=== PATIENT | female | born 1935 | race Caucasian/White ===

== ENCOUNTER 2021-12-29 22:45 | Inpatient (IN) | payer OTHER ==
[2021-12-29 23:12] LABS: HEMATOCRIT 33.6 % (32.4-45.2); HEMOGLOBIN 12.3 G/dL (10.7-15.3); MCH 33.6 pg (25.7-33.7); MCHC 36.5 g/dl (32.0-36.0); MEAN CELL VOLUME 92.1 fl (80-96); MEAN PLT VOLUME 6.9 fl (7.5-11.1); PLATELET COUNT 317.7 10^3/uL (134-434); RBC 3.65 10^6/uL (3.60-5.2); RDW 14.1 % (11.6-15.6); WHITE BLOOD COUNT 10.4 10^3/uL (4.0-10.8)
[2021-12-29 23:27] LABS: PLATELET ESTIMATE ADEQUATE
[2021-12-29 23:36] LABS: ALBUMIN 4.1 g/dl (3.4-5.0); CALCIUM 8.7 mg/dl (8.5-10); CREATININE 0.6 mg/dl (0.55-1.3); TOT PROT 6.9 g/dl (6.4-8.2)
[2021-12-29] MEDS ORDERED: ONDANSETRON 4 MG/2 ML VIAL IVPUSH ONE (23:47)
[2021-12-29] MEDS ORDERED: POTASSIUM CHLORIDE 20 MEQ PREMIX IVPB 100 ML IVPB ONE (23:48)
[2021-12-29] MEDS ORDERED: ONDANSETRON 4 MG/2 ML VIAL ONE (23:59)
[2021-12-29] MEDS ORDERED: KCL 10 MEQ IVPB 20 MEQ/200 ML INFUS.BAG IVPB ONE (23:59)
[2021-12-30] MEDS ORDERED: morphine CARPU-JECT 2 MG/1 ML DISP.SYRIN IVPUSH ONE (00:18)
[2021-12-30] MEDS ORDERED: morphine SULFATE 4 MG/ML VIAL ONE (00:24)
[2021-12-30 01:45] LABS: CHLORIDE 72 mmol/L (98-107)
[2021-12-30 01:47] LABS: BLOOD UREA NITROGEN 5.4 mg/dL (7-18); CO2 23 mmol/L (21-32); GLUCOSE,RANDOM 131 mg/dL (74-106)
[2021-12-30 01:48] LABS: CALCIUM 7.6 mg/dL (8.5-10.1)
[2021-12-30 01:50] LABS: CREATININE 0.5 mg/dL (0.55-1.3)
[2021-12-30 02:42] LABS: ANION GAP 15 MMOL/L (8-16); SODIUM 110 mmol/L (136-145)
[2021-12-30] MEDS ORDERED: POTASSIUM CHLORIDE 20 MEQ PREMIX IVPB 100 ML IVPB ONE (02:42)
[2021-12-30] MEDS ORDERED: POTASSIUM CHLORIDE TABS 20 MEQ TABLET.ER (FP) PO ONE ×4 (02:47→12:09)
[2021-12-30] MEDS ORDERED: KCL 10 MEQ IVPB 20 MEQ/200 ML INFUS.BAG IVPB ONE (02:49)
[2021-12-30] MEDS ORDERED: SODIUM CHLORIDE 1,000 ML IV STA (03:41)
[2021-12-30] MEDS ORDERED: POLYETHYLENE GLYCOL (HEALTHYLAX) 3350 17 GM PACKET PO PRN (03:47)
[2021-12-30] MEDS ORDERED: ONDANSETRON 4 MG/2 ML VIAL IVPUSH PRN (06:00)
[2021-12-30 08:10] LABS: HEMATOCRIT 31.3 % (32.4-45.2); HEMOGLOBIN 11.1 G/dL (10.7-15.3); MCHC 35.6 g/dl (32.0-36.0); MEAN CELL VOLUME 92.7 fl (80-96); MEAN PLT VOLUME 7.1 fl (7.5-11.1); PLATELET COUNT 321.2 10^3/uL (134-434); RBC 3.38 10^6/uL (3.60-5.2); RDW 14.3 % (11.6-15.6); WHITE BLOOD COUNT 10.9 10^3/uL (4.0-10.8)
[2021-12-30 08:15] LABS: CALCIUM 7.7 mg/dl (8.5-10); CREATININE 0.5 mg/dl (0.55-1.3); MAGNESIUM 1.2 mg/dL (1.8-2.4); PHOSPHOROUS 2.1 mg/dl (2.5-4.9)
[2021-12-30 09:35] LABS: INR 1.01 (0.83-1.09); PROTHROMBIN TIME (PATIENT) 11.6 SEC (9.7-13.0)
[2021-12-30 09:37] LABS: ACTIVATED PTT 24.9 SECONDS (25.2-36.5)
[2021-12-30] MEDS: ENOXAPARIN NA (PORCINE) 40 MG/0.4 ML DISP.SYRIN SQ SCH (10:46)
[2021-12-30] MEDS ORDERED: traMADol HCL 50 MG TABLET PO ONE (10:49)
[2021-12-30] MEDS ORDERED: traMADol HCL 50 MG TABLET ONE (11:18)
[2021-12-30] MEDS ORDERED: MAGNESIUM SULF 50% (8.12 MEQ/2 ML-1 GM VIAL) IVPB ONE (11:33)
[2021-12-30 11:53] LABS: EPITHELIAL CELLS RARE /hpf
[2021-12-30] MEDS ORDERED: MAGNESIUM SULFATE IN WATER 2 GM/50 ML IVPB IVPB ONE (12:09)
[2021-12-30] MEDS: SODIUM CHLORIDE 0.9%/KCL 20 MEQ/1,000 ML INFUS.BAG IV SCH (12:17)
[2021-12-30] MEDS: ACETAMINOPHEN 325 MG TABLET (FP) PO PRN (19:40)
[2021-12-30 21:13] LABS: CHLORIDE 73 mmol/L (98-107)
[2021-12-30 21:14] LABS: BLOOD UREA NITROGEN 4.3 mg/dL (7-18); CALCIUM 7.6 mg/dL (8.5-10.1)
[2021-12-30 21:15] LABS: CO2 18 mmol/L (21-32); GLUCOSE,RANDOM 159 mg/dL (74-106); MAGNESIUM 1.9 mg/dL (1.8-2.4)
[2021-12-30 21:18] LABS: CREATININE 0.5 mg/dL (0.55-1.3); PHOSPHOROUS 1.8 mg/dL (2.5-4.9)
[2021-12-30 21:21] LABS: ANION GAP 18 MMOL/L (8-16); SODIUM 109 mmol/L (136-145)
[2021-12-30] MEDS: NAPH,MB-DB/K PH,MBDB POWDER PACKET PO SCH (21:59)
[2021-12-31] MEDS: SODIUM CHLORIDE 0.9%/KCL 20 MEQ/1,000 ML INFUS.BAG IV SCH ×2 (00:15→11:03)
[2021-12-31 00:41] LABS: CHLORIDE 74 mmol/L (98-107)
[2021-12-31 00:42] LABS: CALCIUM 7.6 mg/dL (8.5-10.1)
[2021-12-31 00:43] LABS: BLOOD UREA NITROGEN 5.9 mg/dL (7-18); CO2 20 mmol/L (21-32); GLUCOSE,RANDOM 158 mg/dL (74-106)
[2021-12-31 00:46] LABS: CREATININE 0.7 mg/dL (0.55-1.3)
[2021-12-31 01:12] LABS: ANION GAP 18 MMOL/L (8-16); SODIUM 113 mmol/L (136-145)
[2021-12-31] MEDS: ACETAMINOPHEN 325 MG TABLET (FP) PO PRN (02:06)
[2021-12-31 08:33] LABS: HEMATOCRIT 28.6 % (32.4-45.2); HEMOGLOBIN 10.2 GM/dL (10.7-15.3); MCH 32.3 pg (25.7-33.7); MCHC 35.6 g/dl (32.0-36.0); MEAN CELL VOLUME 90.6 fl (80-96); MEAN PLT VOLUME 7.6 fl (7.5-11.1); PLATELET COUNT 377 10^3/uL (134-434); RBC 3.16 M/mm3 (3.60-5.2); RDW 13.2 % (11.6-15.6); WHITE BLOOD COUNT 10.4 K/mm3 (4.0-10.0)
[2021-12-31 08:39] LABS: INR 0.99 (0.83-1.09); PROTHROMBIN TIME (PATIENT) 11.4 SEC (9.7-13.0)
[2021-12-31 08:40] LABS: CHLORIDE 75 mmol/L (98-107)
[2021-12-31 08:47] LABS: CALCIUM 7.6 mg/dL (8.5-10.1)
[2021-12-31 08:48] LABS: BLOOD UREA NITROGEN 6.9 mg/dL (7-18); CO2 22 mmol/L (21-32); GLUCOSE,RANDOM 135 mg/dL (74-106); MAGNESIUM 2.1 mg/dL (1.8-2.4)
[2021-12-31 08:51] LABS: CREATININE 0.5 mg/dL (0.55-1.3)
[2021-12-31 08:52] LABS: ANION GAP 16 MMOL/L (8-16); SODIUM 113 mmol/L (136-145)
[2021-12-31] MEDS: ENOXAPARIN NA (PORCINE) 40 MG/0.4 ML DISP.SYRIN SQ SCH (09:08)
[2021-12-31] MEDS: NAPH,MB-DB/K PH,MBDB POWDER PACKET PO SCH ×2 (09:08→21:45)
[2021-12-31] MEDS ORDERED: POTASSIUM PHOSPHATE 15 MM in SODIUM CHLORIDE 100 ML IVPB ONE (14:37)
[2021-12-31 19:23] LABS: CALCIUM 7.9 mg/dL (8.5-10.1)
[2021-12-31 19:27] LABS: CREATININE 0.6 mg/dL (0.55-1.3)
[2022-01-01] MEDS: SODIUM CHLORIDE 0.9%/KCL 20 MEQ/1,000 ML INFUS.BAG IV SCH ×3 (02:05→21:19)
[2022-01-01] MEDS: ACETAMINOPHEN 325 MG TABLET (FP) PO PRN ×3 (03:34→17:33)
[2022-01-01 08:09] LABS: HEMATOCRIT 23.5 % (32.4-45.2); HEMOGLOBIN 8.2 GM/dL (10.7-15.3); MCH 31.9 pg (25.7-33.7); MCHC 34.9 g/dl (32.0-36.0); MEAN CELL VOLUME 91.3 fl (80-96); MEAN PLT VOLUME 7.4 fl (7.5-11.1); PLATELET COUNT 342 10^3/uL (134-434); RBC 2.57 M/mm3 (3.60-5.2); RDW 13.3 % (11.6-15.6); WHITE BLOOD COUNT 12.4 K/mm3 (4.0-10.0)
[2022-01-01 08:27] LABS: CHLORIDE 85 mmol/L (98-107)
[2022-01-01 08:34] LABS: CO2 22 mmol/L (21-32); GLUCOSE,RANDOM 100 mg/dL (74-106); MAGNESIUM 2.1 mg/dL (1.8-2.4)
[2022-01-01 08:35] LABS: CALCIUM 7.7 mg/dL (8.5-10.1)
[2022-01-01 08:36] LABS: BLOOD UREA NITROGEN 8.7 mg/dL (7-18)
[2022-01-01 08:37] LABS: CREATININE 0.4 mg/dL (0.55-1.3)
[2022-01-01 08:46] LABS: ANION GAP 11 MMOL/L (8-16); SODIUM 118 mmol/L (136-145)
[2022-01-01] MEDS: ENOXAPARIN NA (PORCINE) 40 MG/0.4 ML DISP.SYRIN SQ SCH (09:08)
[2022-01-01] MEDS ORDERED: SODIUM PHOSPHATE - 20 MM in SODIUM CHLORIDE 250 ML IVPB ONE (10:00)
[2022-01-01] MEDS: POLYETHYLENE GLYCOL (HEALTHYLAX) 3350 17 GM PACKET PO SCH ×2 (15:15→21:19)
[2022-01-01 20:26] LABS: CALCIUM 7.4 mg/dL (8.5-10.1)
[2022-01-01 20:27] LABS: BLOOD UREA NITROGEN 7.6 mg/dL (7-18)
[2022-01-01 20:30] LABS: CREATININE 0.5 mg/dL (0.55-1.3)
[2022-01-01] MEDS: DOCUSATE SODIUM 100 MG CAPSULE (FP) PO SCH (21:19)
[2022-01-01] MEDS ORDERED: MELATONIN 5 MG TABLETS PO ONE (22:31)
[2022-01-02 01:19] LABS: CALCIUM 7.4 mg/dL (8.5-10.1)
[2022-01-02 01:20] LABS: BLOOD UREA NITROGEN 6.9 mg/dL (7-18)
[2022-01-02 01:23] LABS: CREATININE 0.4 mg/dL (0.55-1.3)
[2022-01-02] MEDS: POLYETHYLENE GLYCOL (HEALTHYLAX) 3350 17 GM PACKET PO SCH ×3 (05:26→22:55)
[2022-01-02 07:51] LABS: BASO % 0.1 % (0-2.0); EOS % 0.2 % (0-4.5); HEMATOCRIT 20.8 % (32.4-45.2); HEMOGLOBIN 7.4 GM/dL (10.7-15.3); LYMPH % 7.5 % (8-40); MCH 32.5 pg (25.7-33.7); MCHC 35.3 g/dl (32.0-36.0); MEAN CELL VOLUME 92.1 fl (80-96); MEAN PLT VOLUME 7.9 fl (7.5-11.1); MONO % 16.1 % (3.8-10.2); NEUT % 76.1 % (42.8-82.8); PLATELET COUNT 309 10^3/uL (134-434); RBC 2.26 M/mm3 (3.60-5.2); RDW 13.7 % (11.6-15.6); WHITE BLOOD COUNT 10.3 K/mm3 (4.0-10.0)
[2022-01-02 07:58] LABS: CALCIUM 7.5 mg/dL (8.5-10.1)
[2022-01-02 07:59] LABS: BLOOD UREA NITROGEN 5.8 mg/dL (7-18); MAGNESIUM 2.1 mg/dL (1.8-2.4)
[2022-01-02 08:02] LABS: CREATININE 0.5 mg/dL (0.55-1.3); PHOSPHOROUS 1.7 mg/dL (2.5-4.9)
[2022-01-02] MEDS: ENOXAPARIN NA (PORCINE) 40 MG/0.4 ML DISP.SYRIN SQ SCH (10:01)
[2022-01-02 13:19] LABS: CALCIUM 7.6 mg/dL (8.5-10.1)
[2022-01-02 13:20] LABS: BLOOD UREA NITROGEN 5.7 mg/dL (7-18)
[2022-01-02 13:23] LABS: CREATININE 0.4 mg/dL (0.55-1.3)
[2022-01-02] MEDS ORDERED: SODIUM PHOSPHATE - 20 MM in SODIUM CHLORIDE 250 ML IVPB ONE (14:00)
[2022-01-02] MEDS: NAPH,MB-DB/K PH,MBDB POWDER PACKET PO SCH ×2 (14:14→22:56)
[2022-01-02 16:42] LABS: CALCIUM 7.8 mg/dL (8.5-10.1)
[2022-01-02 16:43] LABS: BLOOD UREA NITROGEN 4.8 mg/dL (7-18)
[2022-01-02 16:46] LABS: CREATININE 0.5 mg/dL (0.55-1.3)
[2022-01-02] MEDS: ACETAMINOPHEN 325 MG TABLET (FP) PO PRN (17:01)
[2022-01-02] MEDS: PANTOPRAZOLE 40 MG TABLET PO SCH (18:14)
[2022-01-02] MEDS ORDERED: MELATONIN 5 MG TABLETS PO ONE (21:25)
[2022-01-02] MEDS ORDERED: ATORVASTATIN CA 20 MG TABLET (FP) PO SCH (22:00)
[2022-01-02] MEDS: DOCUSATE SODIUM 100 MG CAPSULE (FP) PO SCH (22:55)
[2022-01-02] MEDS: MELATONIN 5 MG TABLETS PO SCH (22:55)
[2022-01-03] MEDS: POLYETHYLENE GLYCOL (HEALTHYLAX) 3350 17 GM PACKET PO SCH ×3 (07:17→23:00)
[2022-01-03] MEDS ORDERED: ONDANSETRON 4 MG/2 ML VIAL IVPUSH PRN (07:24)
[2022-01-03 09:14] LABS: EOS % 0.1 % (0-4.5); HEMATOCRIT 21.1 % (32.4-45.2); HEMOGLOBIN 7.3 GM/dL (10.7-15.3); LYMPH % 3.4 % (8-40); MCH 32.1 pg (25.7-33.7); MCHC 34.7 g/dl (32.0-36.0); MEAN CELL VOLUME 92.6 fl (80-96); MEAN PLT VOLUME 6.8 fl (7.5-11.1); MONO % 8.6 % (3.8-10.2); NEUT % 87.9 % (42.8-82.8); PLATELET COUNT 404 10^3/uL (134-434); RBC 2.28 M/mm3 (3.60-5.2); RDW 13.9 % (11.6-15.6); WHITE BLOOD COUNT 15.9 K/mm3 (4.0-10.0)
[2022-01-03 09:37] LABS: CALCIUM 7.9 mg/dL (8.5-10.1)
[2022-01-03 09:38] LABS: ALBUMIN 2.6 g/dl (3.4-5.0); BLOOD UREA NITROGEN 5.7 mg/dL (7-18)
[2022-01-03 09:39] LABS: PHOSPHOROUS 2.5 mg/dL (2.5-4.9)
[2022-01-03 09:40] LABS: CREATININE 0.6 mg/dL (0.55-1.3)
[2022-01-03 09:41] LABS: BILIRUBIN,TOTAL 0.8 mg/dL (0.2-1); TOT PROT 5.2 g/dl (6.4-8.2)
[2022-01-03] MEDS: PANTOPRAZOLE 40 MG TABLET PO SCH (10:51)
[2022-01-03] MEDS: NAPH,MB-DB/K PH,MBDB POWDER PACKET PO SCH ×2 (10:51→23:00)
[2022-01-03] MEDS ORDERED: POTASSIUM CHLORIDE TABS 20 MEQ TABLET.ER (FP) PO ONE (12:30)
[2022-01-03] MEDS: ACETAMINOPHEN 325 MG TABLET (FP) PO PRN (12:58)
[2022-01-03 13:51] LABS: EPI CELLS 32 /uL (0-25.1); HYALINE CASTS 5 /uL (0-3.1); PH,URINE 6.5 (5.0-8.0); URINE APPEARANCE CLEAR; URINE BACTERIA 14 /uL (0-1359); URINE BILIRUBIN NEGATIVE (NEGATIVE); URINE COLOR YELLOW; URINE GLUCOSE (UA) NEGATIVE (NEGATIVE); URINE KETONE NEGATIVE (NEGATIVE); URINE LEUK ESTERASE TRACE (NEGATIVE); URINE NITRITE NEGATIVE (NEGATIVE); URINE PROTEIN TRACE (NEGATIVE); URINE RBC 38 /uL (0-23.9); URINE WBC 33 /uL (0-25.8)
[2022-01-03] MEDS: SODIUM CHLORIDE 0.9%/KCL 20 MEQ/1,000 ML INFUS.BAG IV SCH (14:38)
[2022-01-03] MEDS ORDERED: CEFEPIME HCL 2 GM VIAL (RESTRICTED TO ID) ONE ×2 (14:39→18:39)
[2022-01-03] MEDS ORDERED: DEXTROSE 5%-WATER 100 ML IVPB ONE ×4 (14:39→23:53)
[2022-01-03] MEDS: CEFEPIME 2 GM in DEXTROSE 5%-WATER 2 GM/100 ML BAG IVPB SCH ×2 (14:43→18:49)
[2022-01-03] MEDS ORDERED: DOXYCYCLINE HYCLATE 100 MG VIAL ONE ×2 (16:18→23:53)
[2022-01-03] MEDS: DOXYCYCLINE INJECTION 100 MG in DEXTROSE 5%-WATER 100 ML IVPB SCH ×2 (16:22→23:00)
[2022-01-03 17:11] LABS: INR 1.17 (0.83-1.09); PROTHROMBIN TIME (PATIENT) 13.5 SEC (9.7-13.0)
[2022-01-03 17:14] LABS: ACTIVATED PTT 24.7 SECONDS (25.2-36.5)
[2022-01-03] MEDS ORDERED: DOXYCYCLINE INJECTION 100 MG in DEXTROSE 5%-WATER 100 ML IVPB SCH (22:00)
[2022-01-03] MEDS: DOCUSATE SODIUM 100 MG CAPSULE (FP) PO SCH (23:00)
[2022-01-03] MEDS: MELATONIN 5 MG TABLETS PO SCH (23:00)
[2022-01-03] MEDS: ATORVASTATIN CA 20 MG TABLET (FP) PO SCH (23:00)
[2022-01-04] MEDS ORDERED: CEFEPIME 2 GM in DEXTROSE 5%-WATER 2 GM/100 ML BAG IVPB SCH (02:00)
[2022-01-04] MEDS ORDERED: CEFEPIME HCL 2 GM VIAL (RESTRICTED TO ID) ONE (02:00)
[2022-01-04] MEDS ORDERED: DEXTROSE 5%-WATER 100 ML IVPB ONE (02:01)
[2022-01-04] MEDS: POLYETHYLENE GLYCOL (HEALTHYLAX) 3350 17 GM PACKET PO SCH ×3 (07:04→21:34)
[2022-01-04] MEDS: PANTOPRAZOLE 40 MG TABLET PO SCH (10:49)
[2022-01-04] MEDS: NAPH,MB-DB/K PH,MBDB POWDER PACKET PO SCH ×2 (10:50→21:23)
[2022-01-04] MEDS: ACETAMINOPHEN 325 MG TABLET (FP) PO PRN ×2 (13:07→21:24)
[2022-01-04] MEDS: SODIUM CHLORIDE 0.9%/KCL 20 MEQ/1,000 ML INFUS.BAG IV SCH (13:10)
[2022-01-04 15:12] LABS: BASO % 0.2 % (0-2.0); EOS % 0.4 % (0-4.5); HEMATOCRIT 23.7 % (32.4-45.2); HEMOGLOBIN 8.3 GM/dL (10.7-15.3); LYMPH % 5.8 % (8-40); MCH 31.8 pg (25.7-33.7); MCHC 35.1 g/dl (32.0-36.0); MEAN CELL VOLUME 90.7 fl (80-96); MEAN PLT VOLUME 6.7 fl (7.5-11.1); MONO % 10.1 % (3.8-10.2); NEUT % 83.5 % (42.8-82.8); PLATELET COUNT 394 10^3/uL (134-434); RBC 2.61 M/mm3 (3.60-5.2); RDW 14.1 % (11.6-15.6); WHITE BLOOD COUNT 12.3 K/mm3 (4.0-10.0)
[2022-01-04 15:24] LABS: INR 0.97 (0.83-1.09); PROTHROMBIN TIME (PATIENT) 11.2 SEC (9.7-13.0)
[2022-01-04 15:25] LABS: BLOOD UREA NITROGEN 5.3 mg/dL (7-18)
[2022-01-04 15:28] LABS: CREATININE 0.4 mg/dL (0.55-1.3); PHOSPHOROUS 3.1 mg/dL (2.5-4.9)
[2022-01-04] MEDS: ATORVASTATIN CA 20 MG TABLET (FP) PO SCH (21:23)
[2022-01-04] MEDS: MELATONIN 5 MG TABLETS PO SCH (21:23)
[2022-01-04] MEDS: DOCUSATE SODIUM 100 MG CAPSULE (FP) PO SCH (21:34)
[2022-01-05] MEDS: SODIUM CHLORIDE 0.9%/KCL 20 MEQ/1,000 ML INFUS.BAG IV SCH ×3 (02:59→17:59)
[2022-01-05] MEDS: POLYETHYLENE GLYCOL (HEALTHYLAX) 3350 17 GM PACKET PO SCH ×3 (06:13→21:14)
[2022-01-05] MEDS: PANTOPRAZOLE 40 MG TABLET PO SCH (10:28)
[2022-01-05 13:46] LABS: HEMATOCRIT 25.7 % (32.4-45.2); MCH 31.8 pg (25.7-33.7); MCHC 34.8 g/dl (32.0-36.0); MEAN CELL VOLUME 91.6 fl (80-96); MEAN PLT VOLUME 6.9 fl (7.5-11.1); PLATELET COUNT 481 10^3/uL (134-434); RBC 2.81 M/mm3 (3.60-5.2); RDW 14.8 % (11.6-15.6); WHITE BLOOD COUNT 10.7 K/mm3 (4.0-10.0)
[2022-01-05 14:20] LABS: CALCIUM 7.9 mg/dL (8.5-10.1)
[2022-01-05 14:24] LABS: CREATININE 0.4 mg/dL (0.55-1.3)
[2022-01-05] MEDS: ACETAMINOPHEN 325 MG TABLET (FP) PO PRN ×2 (15:48→21:13)
[2022-01-05] MEDS: MELATONIN 5 MG TABLETS PO SCH (21:14)
[2022-01-05] MEDS: DOCUSATE SODIUM 100 MG CAPSULE (FP) PO SCH (21:14)
[2022-01-05] MEDS: ATORVASTATIN CA 20 MG TABLET (FP) PO SCH (21:14)
[2022-01-06] MEDS: POLYETHYLENE GLYCOL (HEALTHYLAX) 3350 17 GM PACKET PO SCH ×3 (05:13→21:51)
[2022-01-06 08:12] LABS: HEMOGLOBIN 8.4 GM/dL (10.7-15.3); MCH 32.3 pg (25.7-33.7); MEAN CELL VOLUME 92.1 fl (80-96); MEAN PLT VOLUME 6.6 fl (7.5-11.1); PLATELET COUNT 486 10^3/uL (134-434); RBC 2.61 M/mm3 (3.60-5.2); RDW 14.3 % (11.6-15.6)
[2022-01-06 08:29] LABS: BLOOD UREA NITROGEN 6.1 mg/dL (7-18)
[2022-01-06 08:32] LABS: CREATININE 0.4 mg/dL (0.55-1.3)
[2022-01-06] MEDS: PANTOPRAZOLE 40 MG TABLET PO SCH (10:20)
[2022-01-06] MEDS: amLODIPine BESYLATE 5 MG TABLET (FP) PO SCH ×2 (10:55→10:57)
[2022-01-06] MEDS: VALSARTAN 80 MG TABLET PO SCH (10:57)
[2022-01-06] MEDS: SODIUM CHLORIDE 0.9%/KCL 20 MEQ/1,000 ML INFUS.BAG IV SCH (13:47)
[2022-01-06] MEDS: ACETAMINOPHEN 325 MG TABLET (FP) PO PRN ×2 (14:07→20:10)
[2022-01-06] MEDS: ATORVASTATIN CA 20 MG TABLET (FP) PO SCH (21:45)
[2022-01-06] MEDS: MELATONIN 5 MG TABLETS PO SCH (21:45)
[2022-01-06] MEDS: DOCUSATE SODIUM 100 MG CAPSULE (FP) PO SCH (21:51)
[2022-01-07] MEDS: POLYETHYLENE GLYCOL (HEALTHYLAX) 3350 17 GM PACKET PO SCH ×3 (06:46→21:00)
[2022-01-07] MEDS: PANTOPRAZOLE 40 MG TABLET PO SCH (09:55)
[2022-01-07] MEDS: amLODIPine BESYLATE 5 MG TABLET (FP) PO SCH (09:55)
[2022-01-07] MEDS: SODIUM CHLORIDE 0.9%/KCL 20 MEQ/1,000 ML INFUS.BAG IV SCH ×3 (09:55→23:47)
[2022-01-07] MEDS: VALSARTAN 80 MG TABLET PO SCH (09:55)
[2022-01-07] MEDS: ACETAMINOPHEN 325 MG TABLET (FP) PO PRN ×2 (10:05→17:30)
[2022-01-07] MEDS: ZINC OXIDE 20% TOPICAL OINTMENT 30 GM TUBE TP SCH ×2 (14:27→21:02)
[2022-01-07] MEDS: ATORVASTATIN CA 20 MG TABLET (FP) PO SCH (21:00)
[2022-01-07] MEDS: MELATONIN 5 MG TABLETS PO SCH (21:00)
[2022-01-07] MEDS: DOCUSATE SODIUM 100 MG CAPSULE (FP) PO SCH (21:01)
[2022-01-08] MEDS: POLYETHYLENE GLYCOL (HEALTHYLAX) 3350 17 GM PACKET PO SCH ×3 (06:35→21:08)
[2022-01-08 08:59] LABS: BASO % 0.3 % (0-2.0); EOS % 0.2 % (0-4.5); HEMATOCRIT 27.5 % (32.4-45.2); HEMOGLOBIN 9.5 GM/dL (10.7-15.3); LYMPH % 6.4 % (8-40); MCH 31.9 pg (25.7-33.7); MCHC 34.4 g/dl (32.0-36.0); MEAN CELL VOLUME 92.7 fl (80-96); MEAN PLT VOLUME 6.4 fl (7.5-11.1); MONO % 8.9 % (3.8-10.2); NEUT % 84.2 % (42.8-82.8); PLATELET COUNT 590 10^3/uL (134-434); RBC 2.97 M/mm3 (3.60-5.2); RDW 14.7 % (11.6-15.6); WHITE BLOOD COUNT 12.1 K/mm3 (4.0-10.0)
[2022-01-08 09:16] LABS: BLOOD UREA NITROGEN 6.9 mg/dL (7-18); MAGNESIUM 2.1 mg/dL (1.8-2.4)
[2022-01-08 09:19] LABS: CREATININE 0.5 mg/dL (0.55-1.3); PHOSPHOROUS 2.8 mg/dL (2.5-4.9)
[2022-01-08 09:20] LABS: TOT PROT 6.3 g/dl (6.4-8.2)
[2022-01-08 09:21] LABS: BILIRUBIN,TOTAL 1.3 mg/dL (0.2-1)
[2022-01-08 09:33] LABS: ALBUMIN 3.2 g/dl (3.4-5.0)
[2022-01-08] MEDS: amLODIPine BESYLATE 5 MG TABLET (FP) PO SCH (11:20)
[2022-01-08] MEDS: PANTOPRAZOLE 40 MG TABLET PO SCH (11:20)
[2022-01-08] MEDS: VALSARTAN 80 MG TABLET PO SCH (11:20)
[2022-01-08] MEDS: ZINC OXIDE 20% TOPICAL OINTMENT 30 GM TUBE TP SCH ×2 (11:25→22:20)
[2022-01-08] MEDS ORDERED: SODIUM CHLORIDE 1,000 ML IV SCH (14:15)
[2022-01-08] MEDS ORDERED: LACTATED RINGERS SOLUTION 1,000 ML/1,000 ML INFUS.BAG IV SCH (14:15)
[2022-01-08] MEDS: SODIUM CHLORIDE 0.9%/KCL 20 MEQ/1,000 ML INFUS.BAG IV SCH (15:49)
[2022-01-08] MEDS: metoPROLOL SUCCINATE 25 MG TAB.SR.24H (FP) PO SCH (17:03)
[2022-01-08] MEDS: ACETAMINOPHEN 325 MG TABLET (FP) PO PRN (19:20)
[2022-01-08 20:46] LABS: EPI CELLS >36 /uL (0-25.1); HYALINE CASTS 9 /uL (0-3.1); URINE APPEARANCE CLEAR; URINE BACTERIA 45 /uL (0-1359); URINE BILIRUBIN NEGATIVE (NEGATIVE); URINE COLOR YELLOW; URINE GLUCOSE (UA) NEGATIVE (NEGATIVE); URINE KETONE NEGATIVE (NEGATIVE); URINE LEUK ESTERASE 3+ (NEGATIVE); URINE NITRITE NEGATIVE (NEGATIVE); URINE PROTEIN TRACE (NEGATIVE); URINE RBC 91 /uL (0-23.9); URINE WBC 461 /uL (0-25.8)
[2022-01-08] MEDS: DOCUSATE SODIUM 100 MG CAPSULE (FP) PO SCH (21:08)
[2022-01-08] MEDS: ATORVASTATIN CA 20 MG TABLET (FP) PO SCH (21:08)
[2022-01-08] MEDS: LIDOCAINE 5% TOPICAL PATCH TP SCH (21:08)
[2022-01-08] MEDS: MELATONIN 5 MG TABLETS PO SCH (21:08)
[2022-01-08] MEDS ORDERED: LIDOCAINE PATCH REMOVAL MC SCH (22:00)
[2022-01-08] MEDS ORDERED: CEFTRIAXONE 1 GM in DEXTROSE 5%-WATER - 50 ML IVPB SCH (22:29)
[2022-01-08] MEDS ORDERED: cefTRIAXone SODIUM 1 GM VIAL ONE (23:06)
[2022-01-08] MEDS ORDERED: DEXTROSE 5%-WATER - 50 ML IVPB ONE (23:06)
[2022-01-09] MEDS: POLYETHYLENE GLYCOL (HEALTHYLAX) 3350 17 GM PACKET PO SCH ×2 (06:17→14:52)
[2022-01-09 08:35] LABS: BASO % 0.6 % (0-2.0); EOS % 0.2 % (0-4.5); HEMATOCRIT 26.3 % (32.4-45.2); HEMOGLOBIN 9.2 GM/dL (10.7-15.3); LYMPH % 7.2 % (8-40); MCH 32.8 pg (25.7-33.7); MCHC 35.1 g/dl (32.0-36.0); MEAN CELL VOLUME 93.3 fl (80-96); MEAN PLT VOLUME 6.4 fl (7.5-11.1); MONO % 8.9 % (3.8-10.2); NEUT % 83.1 % (42.8-82.8); PLATELET COUNT 514 10^3/uL (134-434); RBC 2.82 M/mm3 (3.60-5.2); RDW 14.6 % (11.6-15.6); WHITE BLOOD COUNT 10.2 K/mm3 (4.0-10.0)
[2022-01-09 08:48] LABS: CALCIUM 8.8 mg/dL (8.5-10.1)
[2022-01-09 08:49] LABS: ALBUMIN 3.1 g/dl (3.4-5.0); BLOOD UREA NITROGEN 7.8 mg/dL (7-18); MAGNESIUM 1.9 mg/dL (1.8-2.4)
[2022-01-09 08:52] LABS: CREATININE 0.5 mg/dL (0.55-1.3)
[2022-01-09 08:54] LABS: BILIRUBIN,TOTAL 1.1 mg/dL (0.2-1); TOT PROT 6.1 g/dl (6.4-8.2)
[2022-01-09] MEDS: LIDOCAINE 5% TOPICAL PATCH TP SCH (11:53)
[2022-01-09] MEDS: amLODIPine BESYLATE 5 MG TABLET (FP) PO SCH (11:53)
[2022-01-09] MEDS: VALSARTAN 80 MG TABLET PO SCH (11:53)
[2022-01-09] MEDS: PANTOPRAZOLE 40 MG TABLET PO SCH (11:53)
[2022-01-09] MEDS: metoPROLOL SUCCINATE 25 MG TAB.SR.24H (FP) PO SCH (11:53)
[2022-01-09] MEDS: ZINC OXIDE 20% TOPICAL OINTMENT 30 GM TUBE TP SCH (11:54)
[2022-01-09 12:01] VITALS: BMI 27.1
[2022-01-09 15:57] VITALS: RESP 20; TEMP 97.8
[2022-01-09] MEDS: ACETAMINOPHEN 325 MG TABLET (FP) PO PRN (16:13)
[2022-01-09 18:07] VITALS: BP 149/73; PULSE 95
[2022-01-10] MEDS ORDERED: CEPHALEXIN MONOHYDRATE 500 MG CAPSULE (UD) PO SCH (10:00)
== END 2022-01-09 18:39 | DRG 640 ==
LOC: FER 22:45 → JICU 12-30 18:05 → J8W 01-02 20:35
PROVIDERS: ADMIT Internal Medicine Pulmonary Disease; ATTEND Internal Medicine
DX: E87.1 Hypo-osmolality and hyponatremia (principal); U07.1 COVID-19; A41.9 Sepsis, unspecified organism; G93.41 Metabolic encephalopathy; N39.0 Urinary tract infection, site not specified; I10 Essential (primary) hypertension; E78.5 Hyperlipidemia, unspecified; E83.42 Hypomagnesemia; E87.6 Hypokalemia; G89.29 Other chronic pain; D64.9 Anemia, unspecified; K59.00 Constipation, unspecified; D72.829 Elevated white blood cell count, unspecified; R11.2 Nausea with vomiting, unspecified; T50.2X5A Adverse effect of carbonic-anhydrase inhibitors, benzothiadiazides and other diuretics, initial encounter; M81.0 Age-related osteoporosis without current pathological fracture; S30.1XXA Contusion of abdominal wall, initial encounter; X58.XXXA Exposure to other specified factors, initial encounter; Y93.89 Activity, other specified; Y92.89 Other specified places as the place of occurrence of the external cause
CPT/HCPCS: 0241U-QW; 36415; 36430; 70450-TC; 71045-TC-FY; 74174-TC; 80048; 80053; 80061; 81003; 81015; 82272; 82533; 82728; 83615; 83735; 83930; 83935; 84100; 84300; 84439; 84443; 84484; 85025; 85027; 85379; 85610; 85730; 86140; 86850; 86900; 86901; 86922; 87040; 87070; 87086; 87205; 93005; 93010; 93306-TC; 93970-TC; 94010; 97116-GP; 97161-GP; 99285-25; C9803-CS; P9058; U0003; U0005